=== PATIENT | male | born 1935 | race Caucasian/White ===

== ENCOUNTER 2016-08-21 17:40 | Inpatient (IN) | payer OTHER, MEDICARE ==
[~2016-08-21] VITALS: Ht 182.9 cm; Wt 76.4 kg
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
== END 2016-08-28 11:57 | DRG 964 ==
LOC: ER 17:40 → 3ICU 18:41 → 4PCU 08-26 18:58
PROVIDERS: ADMIT Surgery
PROC: 0HQ0XZZ Repair Scalp Skin, External Approach (ICD-10-PCS; principal; 2016-08-21)
DX: S06.6X1A Traumatic subarachnoid hemorrhage with loss of consciousness of 30 minutes or less, initial encounter (principal); S22.31XA Fracture of one rib, right side, initial encounter for closed fracture; S27.0XXA Traumatic pneumothorax, initial encounter; F05 Delirium due to known physiological condition; S02.2XXA Fracture of nasal bones, initial encounter for closed fracture; D64.9 Anemia, unspecified; I10 Essential (primary) hypertension; S01.01XA Laceration without foreign body of scalp, initial encounter; V49.50XA Passenger injured in collision with unspecified motor vehicles in traffic accident, initial encounter; J43.9 Emphysema, unspecified; I48.91 Unspecified atrial fibrillation; H91.10 Presbycusis, unspecified ear; Z96.659 Presence of unspecified artificial knee joint; Z79.01 Long term (current) use of anticoagulants